=== PATIENT | female | born 1935 | race Caucasian/White ===

== ENCOUNTER 2018-01-10 17:01 | Emergency (ER) | payer OTHER ==
[2018-01-10] MEDS: LORAZEPAM 0.5 MG TAB PO (19:15)
[2018-01-10] MEDS: METHYLPREDNISOLONE 125 MG INJ IM (19:15)
[2018-01-10] MEDS: ACETAMINOPHEN 325 MG TAB PO (19:15)
[2018-01-10] MEDS: ALBUTEROL 0.5% (NEB) 2.5 MG/0.5 ML AMP INH (19:54)
[2018-01-10] MEDS: IPRATROPIUM (NEB) 0.5 MG/2.5 ML AMP INH (19:54)
== END 2018-01-10 20:58 | disposition home or self-care (01) ==
LOC: FTE 17:01
DX: J43.9 Emphysema, unspecified (principal); I10 Essential (primary) hypertension
CPT/HCPCS: 71046; 94644; 96372; 99284-25

== ENCOUNTER 2019-05-09 18:41 | Emergency (ER) | payer OTHER ==
[2019-05-09] MEDS: MECLIZINE 12.5 MG TAB PO (19:32)
== END 2019-05-09 20:44 | disposition home or self-care (01) ==
LOC: E/R 18:41
DX: R42 Dizziness and giddiness (principal); R40.2142 Coma scale, eyes open, spontaneous, at arrival to emergency department; R40.2362 Coma scale, best motor response, obeys commands, at arrival to emergency department; R40.2252 Coma scale, best verbal response, oriented, at arrival to emergency department; I10 Essential (primary) hypertension
CPT/HCPCS: 99282; Z7502